=== PATIENT | male | born 1970 | race Caucasian/White ===

== ENCOUNTER 2019-03-09 17:11 | Emergency (ER) | payer OTHER ==
[~2019-03-09] VITALS: Ht 175.3 cm; Wt 77.1 kg
[~2019-03-09 17:11] MED LIST: ATI1 PO; DILAUDID2 MG; FER300 PO; FOL1 PO; NORCO1 TA2; THI100 PO; VITC PO
[2019-03-09 17:13] VITALS: BP 138/74; Ht 175.3 cm; Wt 77.1 kg
== END 2019-03-09 18:49 | disposition home or self-care (01) ==
LOC: ED 17:11
DX: M12.572 Traumatic arthropathy, left ankle and foot (principal); H61.22 Impacted cerumen, left ear; H60.92 Unspecified otitis externa, left ear; Z88.0 Allergy status to penicillin
CPT/HCPCS: J1885; Q0092